=== PATIENT | female | born 1970 | race Caucasian/White ===

== ENCOUNTER → 2019-08-02 | Outpatient (CLI) | payer MEDICAID ==
--- NOTE | 2019-08-02 08:23 | XR ---
EXAMINATION TYPE: XR KUB DATE OF EXAM: 08/02/2019 8:13 AM CLINICAL HISTORY: Right-sided groin pain. Passed small kidney stones recently. History of renal ston es. TECHNIQUE: Two Upright KUB images of the abdomen are obtained. COMPARISON: None. FINDINGS: There are 3 round densities right pelvis and single round density left pelvis measuring up to 5 mm in size. Inferior to this there are tiny pelvic phleboliths. No definitive nephrolithiasis at level of kidney margins. Overall nonobstructive bowel gas pattern. There is pneumoperitoneum appreciated. Visualized osseous s tructures are intact. IMPRESSION: Pelvic round densities favor small intraluminal bladder calculi versus phleboliths.
== END | disposition home or self-care (01) ==
LOC: RADXRMAIN 07:52
PROVIDERS: ATTEND Urology
DX: N20.0 Calculus of kidney (principal)
CPT/HCPCS: 74018

== ENCOUNTER 2019-08-04 12:52 | Day surgery (SDC) | payer MEDICAID ==
[2019-08-03 08:46] VITALS: BMI 26.3
--- NOTE | 2019-08-03 11:31 | P.GSHP ---
History of Present Illness H&P Date: 08/03/19 Chief Complaint: Right renal colic The patient is a 48-year-old white female with a history of urolithiasis. She has experienced right flank pain radiating to the right groin since late March. A renal ultrasound in March showed bilateral renal calculi. She has recently passed small calculi, but reports persistent vaginal and pelvic pain which is predominantly right sided associated with bladder spasms. She was recently treated for a pansensitive E. coli UTI. A KUB x-ray suggests the presence of a calculus at the right ureterovesical junction. - Constitutional Constitutional: Denies chills, Denies fever - Gastrointestinal Gastrointestinal: Denies nausea, Denies vomiting - Genitourinary (Female) Genitourinary: Reports flank pain, Reports hematuria, Reports kidney stones, Reports urinary frequency Past Medical History Additional Past Medical History / Comment(s): KIDNEY STONES, UTI History of Any Multi-Drug Resistant Organisms: None Reported Past Surgical History: Hysterectomy Past Anesthesia/Blood Transfusion Reactions: No Reported Reaction, Motion Sickness Additional Past Anesthesia/Blood Transfusion Reaction / Comment(s): FATHER=PONV Past Psychological History: No Psychological Hx Reported Smoking Status: Current every day smoker Past Alcohol Use History: Occasional Additional Past Alcohol Use History / Comment(s): SMOKES LESS THAN 1/2 PPD, STARTED SMOKING AGE 21. Past Drug Use History: Marijuana Additional Drug Use History / Comment(s): OCCASIONAL MARIJUANA USE - Past Family History Mother Family Medical History: Cancer, CVA/TIA Additional Family Medical History / Comment(s): BREAST CANCER Medications and Allergies Home Medications Medication Instructions Recorded Confirmed Type Cephalexin [Keflex] 500 mg PO Q8HR 08/03/19 08/03/19 History Allergies Allergy/AdvReac Type Severity Reaction Status Date / Time Iodinated Contrast Media Allergy Severe Swelling Verified 08/03/19 10:09 Tongue & Lips iodine Allergy Severe Swelling Verified 08/03/19 10:09 Tongue & Lips shellfish derived [Shellfish] Allergy Severe Swelling Verified 08/03/19 10:09 Tongue & Lips VITAMINS WITH IODINE Allergy Severe SKIN Uncoded 08/03/19 10:08 BRIGHT RED Surgical - Exam - General well developed, well nourished, no distress - Neck no masses, trachea midline - Respiratory normal respiratory effort, clear to auscultation - Cardiovascular Rhythm: regular Abnormal Heart Sounds: no systolic murmur, no diastolic murmur, no rub, no S3 Gallop, no S4 Gallop, no click, no other - Abdomen Abdomen: soft, tender (Mild right CVA tenderness), no guarding, no rigid, no rebound - Psychiatric oriented to time, oriented to person, oriented to place, speech is normal, memory intact Results - Imaging Abdominal x-ray: report reviewed, image reviewed Assessment and Plan (1) Calculus of ureter Status: Acute Code(s): N20.1 - CALCULUS OF URETER SNOMED Code(s): 98572131 (2) Calculus of kidney Status: Acute Code(s): N20.0 - CALCULUS OF KIDNEY SNOMED Code(s): 65116540 Plan: I had a lengthy discussion with the patient regarding the fact that she likely has a right distal ureteral calculus at the ureterovesical junction. This is based on her symptoms and the results of a KUB x-ray. We discussed the fact that a computed tomography scan would provide greater diagnostic accuracy. Alternatively, I have suggested she could undergo cystoscopy, right ureteroscopy with Holmium laser lithotripsy and possible stone basketing, right ureteral stent insertion. It would be my goal to remove any right ureteral or renal calculi. The procedure has been reviewed in detail, including potential risks which include anesthesia, bleeding, infection, ureteral injury, and inability to successfully remove the calculus. She has elected to proceed with this approach. When seen in the office on August 01, a repeat urine culture was sent and Keflex was prescribed.
[~2019-08-04 12:52] MED LIST: DEXAMETHASONE SOD PHOSPHATE 10 MG/ML 1 ML VIAL IV ONE; HYDROmorphone 0.5 MG/0.5 ML SYRINGE IVP PRN; LACTATED RINGERS 1,000 ML IV SCH; LIDOCAINE 1% (10MG/ML) FOR IV START INTRADERMA PRN; ONDANSETRON 4 MG/2 ML VIAL IVP ONE; SCOPOLAMINE 1.5MG/72HR PATCH TRANSDERM ONE
[2019-08-04 13:05] VITALS: RESP 16
--- NOTE | 2019-08-04 13:24 | XR ---
EXAMINATION TYPE: XR KUB DATE OF EXAM: 08/04/2019 1:17 PM CLINICAL HISTORY: Prelithotripsy evaluation. History of bilateral nephrolithiasis. TECHNIQUE: Single supine KUB image of the abdomen is obtained. COMPARISON: 08/02/2019. FINDINGS: Clustered calculi in the right hemipelvis are unchanged as well as scattered calculi in the left hemipelvis. No discrete calculi radiographically overlying the left or right renal shadows. Oss eous structures are intact. No dilated large or small bowel. IMPRESSION: Similar-appearing rounded densities in the low pelvis that may represent phleboliths or u rinary bladder calculi..
[2019-08-04] MEDS ORDERED: SCOPOLAMINE 1.5MG/72HR PATCH TRANSDERM ONE (13:50)
[2019-08-04 13:58] LABS: HCT 40.7 % (34.0-46.0); HGB 13.5 gm/dL (11.4-16.0); MCH 29.9 pg (25.0-35.0); MCHC 33.1 g/dL (31.0-37.0); MCV 90.4 fL (80.0-100.0); Mean Platelet Volume 7.3; Platelet Count 250 k/uL (150-450); RDW 13.1 % (11.5-15.5); WBC 8.7 k/uL (3.8-10.6)
[2019-08-04 14:08] LABS: African American GFR (CKD) >90 (>60 ml/min/1.73 sqM); Anion Gap 10 mmol/L; Blood Urea Nitrogen 11 mg/dL (7-17); Calcium 9.4 mg/dL (8.4-10.2); Carbon Dioxide 23 mmol/L (22-30); Chloride 106 mmol/L (98-107); Glucose 91 mg/dL (74-99); Non-African American GFR(CKD) >90 (>60 ml/min/1.73 sqM); Potassium 3.9 mmol/L (3.5-5.1); Sodium 139 mmol/L (137-145)
[2019-08-04] MEDS ORDERED: PROPOFOL 10 MG/ML 20 ML VIAL IV ONE (14:15)
[2019-08-04] MEDS ORDERED: LIDOCAINE 1% INJ 10MG/ML (20 ML MDV) ONE (14:15)
[2019-08-04] MEDS ORDERED: fentaNYL (PF) 50 MCG/ML 2 ML AMP ONE (14:15)
[2019-08-04] MEDS ORDERED: MIDAZOLAM 2 MG/2 ML VIAL ONE (14:15)
[2019-08-04] MEDS ORDERED: SUCCINYLCHOLINE CHLORIDE 100 MG/5 ML SYR IV ONE (14:15)
[2019-08-04] MEDS ORDERED: IOPAMIDOL-370 50ML BTL MISCELLANE ONE (14:40)
[2019-08-04] MEDS ORDERED: LACTATED RINGERS 1,000 ML IV ONE (14:53)
--- NOTE | 2019-08-04 15:16 | P.OP ---
Date of Procedure: 08/04/19 Preoperative Diagnosis: Right ureteral calculus Postoperative Diagnosis: Same Procedure(s) Performed: Cystoscopy, right retrograde pyelogram, right ureteroscopy with Holmium laser lithotripsy, right ureteral stent insertion Anesthesia: WILNERA Surgeon: Gunner Mathews Estimated Blood Loss (ml): 0 IV fluids (ml): 800 Pathology: none sent Condition: stable Disposition: PACU Indications for Procedure: The patient is a 48-year-old white female with a history of urolithiasis. She has experienced right flank pain radiating to the right groin since late March. A renal ultrasound in March showed bilateral renal calculi. She has recently passed small calculi, but reports persistent vaginal and pelvic pain which is predominantly right sided associated with bladder spasms. She was recently treated for a pansensitive E. coli UTI, and a urine culture sent on August 01 shows gram-negative bacilli. She has been treated with Keflex. A KUB x-ray suggests the presence of a calculus at the right ureterovesical junction. Operative Findings: 4 mm right distal ureteral calculus, fragmented completely. Description of Procedure: The patient was taken to the operating room and placed in the dorsolithotomy position, with legs supported in Paxton stirrups. The external genitalia was prepped and draped sterilely. The 30 lens was used to introduce the 19-Maltese Stortz cystoscopic sheath through the urethra and into the bladder under direct vision. The bladder was examined in its entirety. Both ureteral orifices were normal anatomic location and configuration; some edema surrounded the right ur eteral orifice. No tumors or foreign bodies were seen. Using a 10-Maltese cone-tipped catheter, a right retrograde pyelogram was performed in the standard fashion. The ureter was visualized on fluoroscopy. A calculus was seen within the right distal ureter as a filling defect. The cystoscope was removed, and the ACMI semirigid ureteroscope was advanced into the bladder. The right ureteral orifice was cannulated, and the ureteroscope was slowly advanced up to the calculus. The 365 micron Holmium laser probe was passed through the ureteroscope, and lithotripsy was performed. Lithotripsy was continued until there were no residual calculus fragments exceeding 1-2 mm in size. The ureteroscope was then advanced up to the right proximal ureter. No additional calculi were seen. The ureteroscope was slowly withdrawn under direct vision. There was no evidence of ureteral perforation. A 0.035 inch Glidewire was passed through the ureteroscope and up to the right renal pelvis. The ureteroscope was removed, and the Glidewire was backloaded into the cystoscope, which was passed into the bladder. A 26 cm, 4.8-Maltese double-J ureteral stent was placed over the wire. Proper stent positioning was verified fluoroscopically and endoscopically. The bladder was emptied and the cystoscope removed. The patient tolerated the procedure well and was taken to the recovery room in stable condition. [facility] [place] Report: Procedure Acuity: Semi-Urgent Stone Size and Location: 4 mm, right distal ureter Ureteral Dilation: No Ureteral Access Sheath Used: No Stone Sent for Analysis: No All Stones/Fragments Were Removed with a Basket: No Complications: No Preoperative Antibiotics Given: Yes Stent Placed: Yes If Stent Placed, Was String Left Attached: No If Stent Placed, When is it to be Removed: 1 week Discharge Medications: Keflex, tamsulosin, Detrol
[2019-08-04 15:29] VITALS: TEMP 97
[2019-08-04 15:53] VITALS: BP 124/62; PULSE 74
--- NOTE | 2019-08-04 19:10 | FL ---
Fluoroscopy HISTORY: Pain 29 seconds fluoroscopy time supplied to the referring clinician. 2 intraoperative C-arm images docum ent the procedure. See dictated report from urology.
== END 2019-08-04 16:28 | disposition home or self-care (01) ==
LOC: OR 12:52
PROVIDERS: ATTEND Urology
DX: N20.1 Calculus of ureter (principal); N32.89 Other specified disorders of bladder; Z87.442 Personal history of urinary calculi; Z86.19 Personal history of other infectious and parasitic diseases; F17.210 Nicotine dependence, cigarettes, uncomplicated; Z90.710 Acquired absence of both cervix and uterus; Z82.3 Family history of stroke; Z80.3 Family history of malignant neoplasm of breast; Z91.041 Radiographic dye allergy status; Z91.013 Allergy to seafood; Z88.8 Allergy status to other drugs, medicaments and biological substances; Z91.048 Other nonmedicinal substance allergy status
CPT/HCPCS: 80048; 85027; 87635; 74420; 74018; 52356; J1100; J2405; Q9967; 81025